=== PATIENT | female | born 1975 | race Caucasian/White ===

== ENCOUNTER 2021-03-29 12:52 | Outpatient (CLI) | payer MEDICARE, MEDICAID ==
--- NOTE | 2021-04-05 10:17 | XRAY Report ---
PROCEDURE: Shoulder 3 View LT INDICATIONS: LEFT SHOULDER PAIN TECHNIQUE: 4 views of the shoulder were acquired. COMPARISON: None. FINDINGS: Bones: Nondisplaced, mildly comminuted impacted fracture of the greater trochanter. No glenohumeral j oint dislocation or shoulder separation. No suspicious bony lesions. Visualized ribs appear intact. Soft tissues: No suspicious soft tissue calcifications. IMPRESSION: 1. Nondisplaced impaction fracture of the greater trochanter. Reviewed by: Vicki Matos MD on 04/05/2021 10:15 AM PDT Approved by: Vicki Matos MD on 04/05/2021 10:15 AM PDT Station ID: [id number]
== END 2021-03-29 12:53 | disposition home or self-care (01) ==
LOC: DI.N 12:52
PROVIDERS: ATTEND Physician Assistant
DX: S72.115A Nondisplaced fracture of greater trochanter of left femur, initial encounter for closed fracture (principal)